=== PATIENT | female | born 1985 | race Caucasian/White ===

== ENCOUNTER 2021-06-23 09:10 | Emergency (ER) | payer OTHER, SELFPAY ==
--- NOTE | ~2021-06-23 | XR_ITS ---
EXAMINATION: XR CHEST CLINICAL INFORMATION: Productive cough, shortness of breath, 19 weeks gestation COMPARISON: Chest radiographs 07/09/2012 TECHNIQUE: Portable upright AP view of the chest was obtained. FINDINGS: The lungs are clear and there is no lobar or segmental airspace consolidation or groundglass opacity or effusion. The heart is normal in size. The vascularity is normal. The hilar and mediastinal contours are normal. No visible acute bony abnormality. Mild curvature upper lumbar spine is similar to prior study. XR/XR chest 1V IMPRESSION: Unremarkable examination.
[2021-06-23 09:19] VITALS: BP 133/70; PULSE 99; RESP 18; TEMP 36.8; O2SAT 97; BMI 30.9
--- NOTE | 2021-06-23 09:38 | ECG_ITS ---
Test Reason : COUGH Blood Pressure : / mmHG Vent. Rate : 090 BPM Atrial Rate : 090 BPM P-R Int : 148 ms QRS Dur : 090 ms QT Int : 384 ms P-R-T Axes : 052 047 024 degrees QTc Int : 469 ms Normal sinus rhythm RSR' or QR pattern in V1 suggests right ventricular conduction delay Otherwise normal ECG No previous ECGs available Referred By: Yaquelin Rust Electronically Signed By:MERRY MORRISON MD
[2021-06-23 09:48] VITALS: PULSE 100
[2021-06-23] MEDS: Albuterol/Iprat 2.5/0.5MG 3 ML AMPUL.NEB INHALE (09:48)
[2021-06-23 10:07] LABS: Basophils Percent Auto 0.2 % (0-2); Eosinophils Percent Auto 0.4 % (0-4); Hematocrit 30.6 % (37-47); Hemoglobin 10.3 g/dl (12.0-16.0); Imm Gran Abs Auto 0.05 X10*3/uL (0.00-0.03); Imm Gran Pct Auto 0.4 % (0.0-0.4); Lymphocytes Absolute Auto 1.8 X10*3/uL (1.2-4.9); Lymphocytes Percent Auto 16.1 % (20-40); MANUAL DIFF FLAG NO; Mean Corpuscular HGB Conc 33.7 g/dl (31.0-35.0); Mean Corpuscular Hemoglobin 28.9 pg (27.0-33.0); Mean Corpuscular Volume 85.7 fL (80-98); Mean Platelet Volume 9.8 fL (9.4-12.3); Monocytes Absolute Auto 0.5 X10*3/uL (0.1-1.2); Monocytes Percent Auto 4.1 % (2-11); Neutrophils Percent Auto 78.8 % (45-73); Platelet Count 269 X10*3/uL (160-400); Red Blood Count 3.57 X10*6/uL (4.20-5.50); Red Cell Distribution Width 12.5 % (11.0-16.0); White Blood Count 11.4 X10*3/uL (4.8-10.8)
--- NOTE | 2021-06-23 10:13 | ED_ITS ---
HPI - URI/Sore Throat General Chief Complaint: Upper Respiratory Symptoms Stated Complaint: Chest pain/cough- sent from [facility] Time Seen by Provider: 06/23/21 09:24 Source: patient Mode of arrival: ambulatory History of Present Illness HPI Narrative: 35-year-old female at 19 weeks gestation presenting to the ED complaining of productive cough of green phlegm x4 days, SOB and chest tightness. Reports was vaccinated with COVID with booster and obtain flu vaccination. Denies fever, chills, recent travel, LE edema, history of blood c lots, abdominal pain, vaginal bleeding/discharge, dysuria/hematuria MD elicited complaint: cough Related Data Previous Rx's Medication Instructions Recorded amoxicillin 500 mg capsule 1,000 mg PO TID 7 Days #42 cap 06/23/21 dextromethorphan HBr 15 mg capsule 15 mg PO Q6-8H PRN #20 cap 06/23/21 Allergies Allergy/AdvReac Type Severity Reaction Status Date / Time Sulfa (Sulfonamide Allergy Unknown UNKNOWN Unverified 05/16/20 17:50 Antibiotics) [SULFA(SULFONAMIDE ANTIBIOTICS)] sulfa Allergy Unknown swelling Uncoded 11/29/12 00:00 Review of Systems Review of Systems: Constitutional: No Fever, No Chills, No Fatigue, No Malaise ENT/Mouth: No Ear Pain, No Nasal Congestion, No sore throat, No Rhinorrhea, No Swallowing Difficulty Eyes: No Eye Pain, No Swelling, No Vision Changes Cardiovascular: + Chest tightness, + SOB, + Dyspnea on Exertion, No Orthopnea, No Edema, No Palpitations Respiratory: + Cough, + Sputum, No Wheezing, No Dyspnea Gastrointestinal: No Nausea, No Vomiting, No Diarrhea, No Constipation, No Abdominal pain Genitourinary: No irregular bleeding, No Dysuria, No Urinary Frequency, No Hematuria,No Flank Pain, no vaginal discharge Musculoskeletal: No joint pain, No Myalgias, No Joint Swelling Skin: No Skin Lesions, No rash Neuro: No Weakness, No Dizziness, No Headache Yes all other systems are reviewed and are negative [facility] Past Medical History Attestation statement: The following information was validated with the patient. Surgical History (Updated 06/23/21 @ 09:22 by Carlos Díaz) H/O lateral meniscus repair of right knee Hx of appendectomy Social History Social History Alcohol intake: never Patient Tobacco Use Status: Never used Tobacco Use of substances other than those prescribed or required for medical reasons: No Advance Directives: No Advance Directives Information Provided: No Patient : Yes Physical Exam Vital Signs: Vital Signs: Last Vital Signs Temp 98.3 F 06/23/21 09:19 Pulse 100 06/23/21 09:48 Resp 18 06/23/21 09:19 BP 133/70 06/23/21 09:19 Pulse Ox 97 06/23/21 09:19 Body Mass Index 30.9 Const: General: cooperative, healthy appearing and no acute distress Orientation/consciousness: patient oriented x3 Limitations: no limitations HENMT: Head: Yes normal to inspection Ears: hearing grossly normal bilaterally General nose exam: Normal external nose present Face and sinus: Yes normal facial exam Eyes: General: appearance normal, both eyes and all related structures EOM: EOMs intact bilaterally Neck: Neck: Yes normal visual inspection and Yes no meningeal signs Resp: Other: Coughing persistently on exam Effort & Inspection: normal respiratory effort Auscultation: clear to auscultation bilaterally, no rales, no wheezes and lung sounds not diminished Cardio: Rate: regular rate Rhythm: regular rhythm Heart sounds: S1 normal heart sound present and S2 normal heart sound present GI: Other: Gravid uterus Inspection: Yes normal to inspection Palpation (GI): Soft to palpation, nontender, no guarding and not rigid Skin: Rashes: no rashes Wounds: no wounds Neuro: General: patient oriented x3 and no meningeal signs Gait exam (Neuro): Normal gait present Extrem: General: Yes normal to inspection, Yes no pedal edema and Yes no calf tenderness Course Course Course Narrative: -[id number] negative -[id number]--mild leukocytosis of 11.4, H&H 10.3/30.6 expected from , labs otherwise unremarkable including negative troponin XR chest 1V IMPRESSION: Unremarkable examination. > EKG nonischemic, rate of 90. Patient's stil coughing. Plan to DC home with antibiotics to treat for bronchitis and cough suppressants. Discussed worrisome signs and symptoms and strict return precautions and need follow-up with PCP/OBGYN ? MDM - URI/Sore Throat MDM Narrative Medical decision making narrative: 35-year-old female at 19 weeks gestation presenting to the ED complaining of productive cough of green phlegm x4 days, SOB and chest tightness. On exam coughing, heart rate of 99 likely from persistent coughing, lungs CTA, abdomen soft/nontender, no pedal edema/calf tenderness, patient is nontoxic appearing, in no respiratory distress, talking in complete sentences. Concern for viral syndrome/COVID-19 vs bronchitis vs pneumonia. Lower concern for ACS/PE. Patient denies any related complaints. Plan: EKG, labs, COVID-19 testing, CXR, DuoNeb, re-evaluate Medical Records Attestation: I reviewed the patient's medical records. Lab Data Attestation: I reviewed the patient's lab results. Result diagrams: 06/23/21 09:46 06/23/21 09:46 Labs: Lab Results 06/23/21 06/23/21 06/23/21 Range/Units 09:46 09:46 09:46 WBC 11.4 H (4.8-10.8) X10*3/uL RBC 3.57 L (4.20-5.50) X10*6/uL Hgb 10.3 L (12.0-16.0) g/dl Hct 30.6 L (37-47) % MCV 85.7 (80-98) fL MCH 28.9 (27.0-33.0) pg MCHC 33.7 (31.0-35.0) g/dl RDW 12.5 (11.0-16.0) % Plt Count 269 (160-400) X10*3/uL MPV 9.8 (9.4-12.3) fL Immature Gran % (Auto) 0.4 (0.0-0.4) % Neut % (Auto) 78.8 H (45-73) % Lymph % (Auto) 16.1 L (20-40) % [place] % (Auto) 4.1 (2-11) % Eos % (Auto) 0.4 (0-4) % Baso % (Auto) 0.2 (0-2) % Lymph # (Auto) 1.8 (1.2-4.9) X10*3/uL [place] # (Auto) 0.5 (0.1-1.2) X10*3/uL Eos # (Auto) 0.0 (0.0-0.4) X10*3/uL Baso # (Auto) 0.0 (0.0-0.2) X10*3/uL Abs Immat Gran (auto) 0.05 H (0.00-0.03) X10*3/uL Absolute Neuts (auto) 9.0 H (2.0-8.3) X10*3/uL Absolute Nucleated RBC 0.000 (0.0-0.012) X10*3/uL Nucleated RBC % (auto) 0.0 (0.0-0.2) /100WBC Sodium 136 (135-145) mmol/L Potassium 4.2 (3.3-5.1) mmol/L Chloride 107 (96-108) mmol/L Carbon Dioxide 22 (22-29) mmol/L Anion Gap 11 L (12-20) BUN 5 L (9-16) mg/dL Creatinine 0.56 (0.5-1.4) mg/dL Estim Creat Clear Calc 142.5 Estimated GFR > 60 Random Glucose 94 (60-115) mg/dL Calcium 9.0 (8.4-10.2) mg/dL Magnesium 1.7 (1.6-2.6) mg/dL Total Bilirubin 0.3 (0.0-1.0) mg/dL Direct Bilirubin < 0.2 (0.0-0.5) mg/dL AST 9 (5-31) U/L ALT 7 (0-31) U/L Alkaline Phosphatase 53 (39-117) U/L Troponin I High Sens < 3.5 (<3.5-17.0) ng/L B-Natriuretic Peptide 51 (<100) pg/mL Total Protein 6.0 L (6.5-8.0) g/dL Albumin 3.7 (3.5-5.0) g/dL Coronavirus (PCR) (Negative) Influenza Type A (PCR) (Negative) Influenza Type B (PCR) (Negative) RSV RNA Qual (PCR) (Negative) 06/23/21 Range/Units 09:51 WBC (4.8-10.8) X10*3/uL RBC (4.20-5.50) X10*6/uL Hgb (12.0-16.0) g/dl Hct (37-47) % MCV (80-98) fL MCH (27.0-33.0) pg MCHC (31.0-35.0) g/dl RDW (11.0-16.0) % Plt Count (160-400) X10*3/uL MPV (9.4-12.3) fL Immature Gran % (Auto) (0.0-0.4) % Neut % (Auto) (45-73) % Lymph % (Auto) (20-40) % [place] % (Auto) (2-11) % Eos % (Auto) (0-4) % Baso % (Auto) (0-2) % Lymph # (Auto) (1.2-4.9) X10*3/uL [place] # (Auto) (0.1-1.2) X10*3/uL Eos # (Auto) (0.0-0.4) X10*3/uL Baso # (Auto) (0.0-0.2) X10*3/uL Abs Immat Gran (auto) (0.00-0.03) X10*3/uL Absolute Neuts (auto) (2.0-8.3) X10*3/uL Absolute Nucleated RBC (0.0-0.012) X10*3/uL Nucleated RBC % (auto) (0.0-0.2) /100WBC Sodium (135-145) mmol/L Potassium (3.3-5.1) mmol/L Chloride (96-108) mmol/L Carbon Dioxide (22-29) mmol/L Anion Gap (12-20) BUN (9-16) mg/dL Creatinine (0.5-1.4) mg/dL Estim Creat Clear Calc Estimated GFR Random Glucose (60-115) mg/dL Calcium (8.4-10.2) mg/dL Magnesium (1.6-2.6) mg/dL Total Bilirubin (0.0-1.0) mg/dL Direct Bilirubin (0.0-0.5) mg/dL AST (5-31) U/L ALT (0-31) U/L Alkaline Phosphatase (39-117) U/L Troponin I High Sens (<3.5-17.0) ng/L B-Natriuretic Peptide (<100) pg/mL Total Protein (6.5-8.0) g/dL Albumin (3.5-5.0) g/dL Coronavirus (PCR) NEGATIVE (Negative) Influenza Type A (PCR) NEGATIVE (Negative) Influenza Type B (PCR) NEGATIVE (Negative) RSV RNA Qual (PCR) NEGATIVE (Negative) ECG Data Attestation: I personally reviewed and interpreted this ECG as follows: ECG interpretation date: 06/23/21 ECG interpretation time: 11:50 Interpretation: EKG normal sinus rhythm with a rate of 90. [place] interval 148. QTC 469. Nonischemic/no STEMI Discharge Plan Discharge Clinical Impression: Bronchitis Patient Disposition: Home, Self-Care Instructions: Acute Bronchitis (ED), at 19 to 22 Weeks (ED) Additional Instructions: Your chest x-ray was unremarkable, did not show pneumonia You tested negative for COVID-19, the flu, and RSV Your blood work was reassuring Amoxicillin as an antibiotic, please take as prescribed Dextromethorphan will help as a cough suppressant Please follow-up with her OBGYN and PCP If her symptoms persist or worsen, constant worsening shortness of breath/chest pain, develops fever, abdominal pain, vaginal bleeding or discharge please return to the ED immediately Prescriptions: New dextromethorphan HBr 15 mg capsule 15 mg PO Q6-8H PRN (Reason: cough) Qty: 20 RF: 0 amoxicillin 500 mg capsule 1,000 mg PO TID 7 Days Qty: 42 RF: 0 Referrals: Susan Pedroza MD [Primary Care Provider] - 2 days
[2021-06-23 10:27] LABS: Alanine Aminotransferase 7 U/L (0-31); Albumin Level 3.7 g/dL (3.5-5.0); Alkaline Phosphatase 53 U/L (39-117); Anion Gap 11 (12-20); Aspartate Amino Transferase 9 U/L (5-31); Bilirubin Direct < 0.2 mg/dL (0.0-0.5); Bilirubin Total 0.3 mg/dL (0.0-1.0); Blood Urea Nitrogen 5 mg/dL (9-16); Carbon Dioxide 22 mmol/L (22-29); Chloride 107 mmol/L (96-108); Creatinine Clr Calc Pharmacy 142.5; Estimated Glomerular Filt Rate > 60; Glucose Random 94 mg/dL (60-115); Magnesium 1.7 mg/dL (1.6-2.6); Potassium 4.2 mmol/L (3.3-5.1); Sodium 136 mmol/L (135-145)
[2021-06-23 10:31] LABS: B Type Natriuretic Peptide 51 pg/mL (<100); Troponin-I High Sensitivity < 3.5 ng/L (<3.5-17.0)
[2021-06-23 10:43] LABS: Influenza A PCR NEGATIVE (Negative); Influenza B PCR NEGATIVE (Negative); Resp Syncy Virus RNA Qual PCR NEGATIVE (Negative); SARS COV2 PCR INHOUSE NEGATIVE (Negative)
== END 2021-06-23 12:15 | disposition home or self-care (01) ==
PROVIDERS: Physician Assistant; Emergency Provider Emergency Medicine; PCP Internal Medicine
DX: O99.512 Diseases of the respiratory system complicating pregnancy, second trimester (principal); J40 Bronchitis, not specified as acute or chronic; O26.892 Other specified pregnancy related conditions, second trimester; R06.02 Shortness of breath; Z3A.19 19 weeks gestation of pregnancy; Z20.822 Contact with and (suspected) exposure to COVID-19
CPT/HCPCS: 0241U; 36415; 71045; 80048; 80076; 83735; 83880; 84484; 85025; 93005; 94640; 99284